=== PATIENT | female | born 1995 | race African-American/Black ===

== ENCOUNTER 2017-08-12 13:52 | Emergency (ER) | payer OTHER ==
[~2017-08-12] VITALS: Ht 160 cm; Wt 78.6 kg
[2017-08-12 14:54] LABS: HEMATOCRIT 37.1 % (36.0-46.0); HEMOGLOBIN 13.1 G/DL (11.9-15.5); MCH 31.1 PG (29.0-34.0); MCHC 35.3 G/DL (30.0-36.0); MCV 88.1 FL (83-99); PLATELET COUNT 354 K/uL (156-360); RBC DIS.WIDTH-SD 38.8 % (39-53); RED BLOOD COUNT 4.21 M/uL (3.80-5.20); WHITE BLOOD COUNT 4.9 K/uL (4.1-10.2)
[2017-08-12 15:06] LABS: CHLORIDE 107 mEq/L (99-109); POTASSIUM 3.4 mEq/L (3.7-5.4); SODIUM 138 mEq/L (136-147)
[2017-08-12 15:08] LABS: GLUCOSE 82 mg/dL (70-99)
[2017-08-12 15:12] LABS: CREATININE 0.9 mg/dL (0.6-1.3); GFR ESTIMATE (CALCULATED) > 59 mL/min/
[2017-08-12 15:13] LABS: UREA NITROGEN (BUN) 8 mg/dL (9-23)
[2017-08-12] MEDS ORDERED: NAPROXEN500 MG PO (15:52)
[2017-08-12 16:29] VITALS: BP 115/57
== END 2017-08-12 16:30 | disposition home or self-care (01) ==
LOC: EME 13:52
PROVIDERS: Physician Assistant
DX: R07.89 Other chest pain (principal)
CPT/HCPCS: 71046; 80048; 85027; 93005; 99281; 99284